=== PATIENT | male | born 1950 | race Two or more races ===

== ENCOUNTER 2024-06-26 03:03 | Observation (INO) | payer OTHER ==
[~2024-06-26] VITALS: Ht 170.2 cm; Wt 84.1 kg
--- NOTE | 2024-06-26 03:48 | ED.PDOC ---
History of Present Illness HPI Comments 74 year old male came to ER due to urinary issues. Patient has prostate enlargement, had a De Dios catheter inserted last Jun 05, to help with his urination. Yesterday he went to Urgent Care due to the presence of gross blood at his catheter. Patient was started on antibiotics and his catheter was changed. Few hours ago, noted that his catheter appeared to be clogged as there was no urine output noted. Patient denies any pain, denies any nausea or vomiting. Chief Complaint: Urinary Time Seen by MD: 03:48 Reviewed Notes: Nurses Notes, Medications, Allergies (No allergies to medications) Allergies: Coded Allergies: NO KNOWN ALLERGIES (Unverified , 05/31/24) Home Meds No Active Prescriptions or Reported Meds Information Source: Patient Mode of Arrival: Ambulatory Severity: Moderate Timing: Hours Duration: Since onset Prehospital treatment: None Past Medical History PAST MEDICAL HISTORY: PUD Past Medical History (Other): Benign Prostate Hypertrophy Surgical History (Other): Left knee surgery Family History Family History: Reviewed,noncontributory to illness Social History Smoker: Non-Smoker Alcohol: Denies ETOH Use Drugs: Denies Drug Use Lives In: Home Constitutional: denies: chills, diaphoresis, fatigue, fever, malaise, sweats, weakness, others EENTM: denies: blurred vision, double vision, ear bleeding, ear discharge, ear drainage, ear pain, ear ringing, eye pain, eye redness, hearing loss, mouth pain, mouth swelling, nasal discharge, nose bleeding, nose congestion, nose pain, photophobia, tearing, throat pain, throat swelling, voice changes, others Respiratory: denies: cough, hemoptysis, orthopnea, SOB at rest, shortness of breath, SOB with excertion, stridor, wheezing, others Cardiovascular: denies: chest pain, dizzy spells, diaphoresis, Dyspnea on exertion, edema, irregular heart beat, left arm pain, lightheadedness, palpitations, PND, syncope, others Gastrointestinal: denies: abdomen distended, abdominal pain, blood streaked bowels, constipated, diarrhea, dysphagia, difficulty swallowing, hematemesis, melena, nausea, poor appetite, poor fluid intake, rectal bleeding, rectal pain, vomiting, others Genitourinary: reports: hematuria; denies: burning, dysuria, flank pain, frequency, incontinence, penile discharge, penile sore, pain, testicle pain, testicle swelling, urgency, others Neurological: denies: dizziness, fainting, headache, left sided numbness, left sided weakness, numbness, paresthesia, pre-existing deficit, right sided numbness, right sided weakness, seizure, speech problems, tingling, tremors, weakness, others Musculoskeletal: denies: back pain, gout, joint pain, joint swelling, muscle pain, muscle stiffness, neck pain, others Integumetry: denies: bruises, change in color, change in hair/nails, dryness, laceration, lesions, lumps, rash, wounds, others Allergic/Immunocompromised: denies: Difficulty Healing, Frequent Infections, Hives, Itching, others Hematologic/Lymphatic: denies: anemia, blood clots, easy bleeding, easy bruising, swollen glands, others Endocrine: denies: excessive hunger, excessive sweating, excessive thirst, excessive urination, flushing, intolerance to cold, intolerance to heat, unexplained weight gain, unexplained weight loss, others Psychiatric: denies: anxiety, bipolar disorder, depression, hopeless, panic disorder, schizophrenia, sleepless, suicidal, others Physical Exam General Appearance: Moderate Distress HEENT: Normal ENT Inspection, Pharynx Normal, TMs Normal Neck: Full Range of Motion, Non-Tender, Normal, Normal Inspection Respiratory: Chest Non-Tender, Lungs Clear, No Accessory Muscle Use, No Respiratory Distress, Normal Breath Sounds Cardiovascular: No Edema, No JVD, No Murmur, No Gallop, Normal Peripheral Pulses, Regular Rate/Rhythm Breast Exam: Deferred Gastrointestinal: No Organomegaly, No Pulsatile Mass, Normal Bowel Sounds, Soft, Suprapubic, Tenderness Genitalia: Deferred Pelvic: Deferred Rectal: Deferred Extremities: No calf tenderness, Normal capillary refill, Normal inspection, Normal range of motion, Non-tender, No pedal edema Musculoskeletal : Apperance: Normal Neurologic: Alert, tester wafer substrate II-XII nml as Tested, No Motor Deficits, Normal Affect, Normal Mood, No Sensory Deficits Cerebellar Function: Normal Reflexes: Normal Skin: Dry, Normal Color, Warm Lymphatic: No Adenopathy Was a procedure done? Was a procedure done?: No Differential Dx Considerations may include: UTI, Kidney stones, Benign Prostate Hypertrophy X-Ray, Labs, Meds, VS Vital Signs Date Time Temp Pulse Resp B/P (MAP) Pulse Ox O2 Delivery O2 Flow Rate FiO2 06/26/24 04:13 102 17 96 Room Air* 0 21 06/26/24 04:08 97.2 108 20 113/70 (84) 96 97.2 06/26/24 03:23 97.2 125 16 128/83 (98) 98 Lab Test 06/26/24 04:55 Range/Units Urine Color Dark-brown Yellow Urine Clarity Ex.turbid Clear Urine pH 8.0 5.0-9.0 Urine Specific [place] 1.019 1.001-1.035 Urine Protein 3+ H Negative Urine Ketones Negative Negative Urine Blood 3+ H Negative /uL Urine Nitrite 2+ H Negative Urine Bilirubin Negative Negative Urine Urobilinogen Normal Negative mg/dL Urine Leukocyte Esterase 3+ Negative /uL Urine RBC 6129 0 - 3 /hpf Urine WBC 2394 0 - 3 /hpf Urine WBC Clumps Present None Seen /hpf Urine Squamous Epithelial Cells None seen <5 /hpf Urine Bacteria None seen None Seen /hpf Urine Mucus Few None Seen Urine Yeast (Budding) Many None Seen /hpf Urine Glucose Normal Normal mg/dL IV Hep-Lock is being established The CBC and BNP are pending The urine test is positive for significant UTI with significant amount of blood. The patient will undergo bladder irrigation We [facility] At this time, the patient will be placed on Rocephin IV piggyback for any infection Dr. Bell will do the final disposition on this patient Time of 1ST Reevaluation: 03:42 Reevaluation 1ST: Unchanged Patient Education/Counseling: Diagnosis, Treatment, Prognosis Family Education/Counseling: Diagnosis, Treatment, Prognosis Departure 1 Departure Time of Disposition: 05:40 Impression: Primary Impression: Sepsis secondary to UTI Disposition: ADMITTED INPATIENT Admit to: Med Surg Condition: Fair e-Prescriptions No Active Prescriptions or Reported Meds Critical Care Note Critical Care Time?: No Stability Stability form required: Yes Unstable for transfer: ED Physician Assesment (Clinical assesment) Heart Score Heart Score: Heart Score Response (Comments) Value History N/A 0 EKG N/A 0 Age N/A 0 Risk Factors N/A 0 Troponin N/A 0 Total 0 I personally scribed for SO RIOS MD ([email or web address]) on 06/26/24 at 03:48. Electronically submitted by Paulo Glez ([facility]). SO RIOS MD Jun 26, 2024 03:48
[2024-06-26 04:13] VITALS: PULSE 102; RESP 17; O2SAT 96
[2024-06-26 05:04] LABS: Urine Bacteria None Seen /hpf (None Seen)
[2024-06-26 05:09] LABS: Urine Blood 3+ /uL (Negative); Urine Budding Yeast MANY /hpf (None Seen); Urine Clarity Ex.Turbid (Clear); Urine Color Dark-Brown (Yellow); Urine Mucus FEW (None Seen); Urine Protein, UAD 3+ (Negative); Urine Specific Gravity 1.019 (1.001-1.035); Urine Urobilinogen Normal (Negative); Urine WBC 2394 /hpf (0 - 3); Urine WBC Clumps PRESENT /hpf (None Seen)
[2024-06-26 06:00] VITALS: TEMP 98.7
[2024-06-26] MEDS: SODIUM CHLORIDE 0.9% 1,000 ML IV ONE (06:10)
[2024-06-26] MEDS: cefTRIAXone 1GM/50ML D5W 50 ML IV ONE (06:18)
[2024-06-26] MEDS ORDERED: MORPHINE SULFATE INJ 2 MG/ml SYRG IV PRN (06:45)
[2024-06-26] MEDS ORDERED: NITROGLYCERIN 0.4 MG SL TAB SL PRN (06:45)
[2024-06-26 06:48] LABS: Basophils # (auto) 0 10 ^3/uL (0-0.2); Basophils % (auto) 0.3 % (0.0-2.0); Eosinophils # (auto) 0 10 ^3/uL (0-0.8); Eosinophils % (auto) 0.2 % (0.0-7.0); Hematocrit 33.4 % (41.0-53.0); Hemoglobin 11.3 g/dL (13.5-17.5); Lymphocytes # (auto) 0.7 10 ^3/uL (0.4-5.4); Lymphocytes % (auto) 5.9 % (10.0-50.0); Mean Corpuscular Hemoglobin 30.3 pg (28.0-32.0); Mean Corpuscular Hgb Conc. 33.8 g/dL (32.0-36.0); Mean Corpuscular Volume 89.6 fL (80.0-100.0); Monocytes # (auto) 0.7 10 ^3/uL (0-1.3); Monocytes % (auto) 6.1 % (0.0-12.0); Neutrophils # (auto) 10.1 10 ^3/uL (1.6-8.6); Neutrophils % (auto) 87.5 % (37.0-80.0); Platelet Count (auto) 354 10^3/uL (140-450); Red Blood Cells 3.73 10^6/uL (4.5-5.90); Red Cell Distribution Width 14.9 % (11.8-14.3); White Blood Cell 11.6 10^3/uL (4.4-10.8)
[2024-06-26 06:51] LABS: Chloride 109 mmol/L (98-107); Sodium 141 mmol/L (136-145)
[2024-06-26 06:52] LABS: Anion Gap 7 (5-15); Calcium 9.3 mg/dL (8.7-10.4); Carbon Dioxide 25 mmol/L (20-31)
[2024-06-26 06:57] LABS: BUN/Creatinine Ratio 14.8 (10.0-20.0); Blood Urea Nitrogen 18 mg/dL (9-23); Glucose 118 mg/dL (74-106)
--- NOTE | 2024-06-26 07:07 | DVHHP2 ---
Admitting Diagnosis: UTI complicated with dysuria, hematuria, enlarged prostate History of Present Illness HPI 74 y.o, male with enlarged prostate arrived to the ER c/o clogged urinary catheter. The De Dios catheter was inserted on June 05, due to difficulty urinating. Yesterday he had blood in urine and went to Urgent Care. IN UC the catheter was changed and patient was started on antibiotics. Unfortunately today his catheter became clogged again. His UA shows UTI with significant hematuria. Home Meds No Active Prescriptions or Reported Meds Past Medical History Renal/: Benign prostatic enlarg., Hematuria Patient Family History: Patient reports no known family medical history. Review of Systems Genitourinary: Dysuria, Hematuria, Retention H&P Exam Vital Signs Vital Signs Date Time Temp Pulse Resp B/P (MAP) Pulse Ox O2 Delivery O2 Flow Rate FiO2 06/26/24 04:13 102 17 96 Room Air* 0 21 06/26/24 04:08 97.2 113/70 (84) 97.2 General Appeara: Obese Head Exam: Normal inspection Neck Exam: Normal inspection Eye Exam: bilateral eye PERRL, bilateral eye EOMI Pulmonary/Respiratory: Lungs clear Cardiovascular/Chest: Tachycardia Abdominal Exam: Normal bowel sounds, Soft Neuro/Mental St: Alert, Oriented Labs/Xrays Labs Test 06/26/24 06:18 06/26/24 04:55 Range/Units White Blood Count 11.6 H 4.4-10.8 10^3/uL Red Blood Count 3.73 L 4.5-5.90 10^6/uL Hemoglobin 11.3 L 13.5-17.5 g/dL Hematocrit 33.4 L 41.0-53.0 % Mean Corpuscular Volume 89.6 80.0-100.0 fL Mean Corpuscular Hemoglobin 30.3 28.0-32.0 pg Mean Corpuscular Hemoglobin Concent 33.8 32.0-36.0 g/dL Red Cell Distribution Width 14.9 H 11.8-14.3 % Platelet Count 354 140-450 10^3/uL Mean Platelet Volume 8.2 6.9-10.8 fL Neutrophils (%) (Auto) 87.5 H 37.0-80.0 % Lymphocytes (%) (Auto) 5.9 L 10.0-50.0 % Monocytes (%) (Auto) 6.1 0.0-12.0 % Eosinophils (%) (Auto) 0.2 0.0-7.0 % Basophils (%) (Auto) 0.3 0.0-2.0 % Neutrophils # (Auto) 10.1 H 1.6-8.6 10 ^3/uL Lymphocytes # (Auto) 0.7 0.4-5.4 10 ^3/uL Monocytes # (Auto) 0.7 0-1.3 10 ^3/uL Eosinophils # (Auto) 0 0-0.8 10 ^3/uL Basophils # (Auto) 0 0-0.2 10 ^3/uL Nucleated Red Blood Cells 0.0 % Urine Color Dark-brown Yellow Urine Clarity Ex.turbid Clear Urine pH 8.0 5.0-9.0 Urine Specific [place] 1.019 1.001-1.035 Urine Protein 3+ H Negative Urine Ketones Negative Negative Urine Blood 3+ H Negative /uL Urine Nitrite 2+ H Negative Urine Bilirubin Negative Negative Urine Urobilinogen Normal Negative mg/dL Urine Leukocyte Esterase 3+ Negative /uL Urine RBC 6129 0 - 3 /hpf Urine WBC 2394 0 - 3 /hpf Urine WBC Clumps Present None Seen /hpf Urine Squamous Epithelial Cells None seen <5 /hpf Urine Bacteria None seen None Seen /hpf Urine Mucus Few None Seen Urine Yeast (Budding) Many None Seen /hpf Urine Glucose Normal Normal mg/dL Assessment/Plan Problem List: (1) UTI (urinary tract infection) (2) Hematuria (3) Dysuria Plan NPO,urology consult, IVF, Abx Plan discussed with: Patient MELVIN MUKHERJEE MD Jun 26, 2024 07:07
[2024-06-26 07:22] VITALS: PULSE 91; RESP 16; O2SAT 97
[2024-06-26] MEDS: SOD CHL 0.45% 1,000 ML IV ONE (07:30)
--- NOTE | 2024-06-26 09:31 | DVHINCON2 ---
Date of service: Jun 26, [address] Rivera Reason for Consultation hematuria History of Present Illness History Source: Patient, RN Notes, Old Records Exam Limitations: No limitations HPI 74 year old male came to ER due to urinary issues. Patient has prostate enlargement, had a Adam catheter inserted last Jun 05, to help with his urination. Yesterday he went to Urgent Care due to the presence of gross blood at his catheter. Patient was started on antibiotics and his catheter was changed. Few hours ago, noted that his catheter appeared to be clogged as there was no urine output noted. Patient denies any pain, denies any nausea or vomiting. Home Meds No Active Prescriptions or Reported Meds Past Medical History Patient Family History: Patient reports no known family medical history. Smoker: No Hx (Negative) Alocohol: None Drugs: None Domestic Violence: Neg Review of Systems Genitourinary: Hematuria, Pain H&P Exam Vital Signs Vital Signs Date Time Temp Pulse Resp B/P (MAP) Pulse Ox O2 Delivery O2 Flow Rate FiO2 06/26/24 07:22 91 16 97 Room Air* 0 21 06/26/24 06:00 98.7 114/73 (87) 98.7 General Appeara: Well developed, Well nourished, Normal Appearance Abdominal Exam: Normal bowel sounds, Soft, No tenderness, No hepatospenomegaly, No masses Neuro/Mental St: Alert, Oriented Appearance: Appropriate appearance, Appropriate insight Eye contact/ Speech: Cooperative, Good eye contact, Normal speech Skin Exam: Normal inspection, Normal color, Warm/dry Labs/Xrays Labs Test 06/26/24 06:18 06/26/24 04:55 Range/Units White Blood Count 11.6 H 4.4-10.8 10^3/uL Red Blood Count 3.73 L 4.5-5.90 10^6/uL Hemoglobin 11.3 L 13.5-17.5 g/dL Hematocrit 33.4 L 41.0-53.0 % Mean Corpuscular Volume 89.6 80.0-100.0 fL Mean Corpuscular Hemoglobin 30.3 28.0-32.0 pg Mean Corpuscular Hemoglobin Concent 33.8 32.0-36.0 g/dL Red Cell Distribution Width 14.9 H 11.8-14.3 % Platelet Count 354 140-450 10^3/uL Mean Platelet Volume 8.2 6.9-10.8 fL Neutrophils (%) (Auto) 87.5 H 37.0-80.0 % Lymphocytes (%) (Auto) 5.9 L 10.0-50.0 % Monocytes (%) (Auto) 6.1 0.0-12.0 % Eosinophils (%) (Auto) 0.2 0.0-7.0 % Basophils (%) (Auto) 0.3 0.0-2.0 % Neutrophils # (Auto) 10.1 H 1.6-8.6 10 ^3/uL Lymphocytes # (Auto) 0.7 0.4-5.4 10 ^3/uL Monocytes # (Auto) 0.7 0-1.3 10 ^3/uL Eosinophils # (Auto) 0 0-0.8 10 ^3/uL Basophils # (Auto) 0 0-0.2 10 ^3/uL Nucleated Red Blood Cells 0.0 % Sodium Level 141 136-145 mmol/L Potassium Level 4.0 3.5-5.1 mmol/L Chloride Level 109 H 98-107 mmol/L Carbon Dioxide Level 25 20-31 mmol/L Anion Gap 7 5-15 Blood Urea Nitrogen 18 9-23 mg/dL Creatinine 1.22 0.700-1.30 mg/dL Glomerular Filtration Rate Calc 62 >90 mL/min BUN/Creatinine Ratio 14.8 10.0-20.0 Serum Glucose 118 H 74-106 mg/dL Lactic Acid Level 1.1 0.4-2.0 mmol/L Calcium Level 9.3 8.7-10.4 mg/dL Urine Color Dark-brown Yellow Urine Clarity Ex.turbid Clear Urine pH 8.0 5.0-9.0 Urine Specific [place] 1.019 1.001-1.035 Urine Protein 3+ H Negative Urine Ketones Negative Negative Urine Blood 3+ H Negative /uL Urine Nitrite 2+ H Negative Urine Bilirubin Negative Negative Urine Urobilinogen Normal Negative mg/dL Urine Leukocyte Esterase 3+ Negative /uL Urine RBC 6129 0 - 3 /hpf Urine WBC 2394 0 - 3 /hpf Urine WBC Clumps Present None Seen /hpf Urine Squamous Epithelial Cells None seen <5 /hpf Urine Bacteria None seen None Seen /hpf Urine Mucus Few None Seen Urine Yeast (Budding) Many None Seen /hpf Urine Glucose Normal Normal mg/dL Assessment/Plan Problem List: (1) BPH (benign prostatic hyperplasia) (2) Hematuria (3) Dysuria Plan d/c adam encourage fluids pt instructed to come to office by 4 if unable to void outpt cysto pending auth Plan discussed with: Patient, Other BETH MARTIN NP Jun 26, 2024 09:31
[2024-06-26] MEDS ORDERED: CIPROFLOXACIN 400MG/200ML 200 ML IV SCH (10:00)
[2024-06-26 11:00] VITALS: BP 115/69; PULSE 86; RESP 18; O2SAT 98
[2024-06-26] MEDS: CIPROFLOXACIN HCL 500 MG TAB PO SCH (11:18)
--- NOTE | 2024-06-26 12:18 | DVH ---
Left lower extremity venous duplex Clinical History: LLE swelling after knee replacement Comparison: None Findings: Duplex Doppler evaluation of the deep venous system of the left lower extremity from the common femor al vein to the popliteal vein including color Doppler and spectral/pulsed waveform analysis was perfo rmed. The common femoral vein demonstrates appropriate compressibility and waveform variability. There is compressibility/patency of the great saphenous vein at the proximal thigh. The femoral vein demonstrates appropriate compressibility and waveform variability. The deep femoral vein demonstrates appropriate compressibility and waveform variability. The popliteal vein demonstrates appropriate compressibility and waveform variability. There is normal compressibility at the tibioperoneal trunk. Impression: No left femoropopliteal venous thrombosis. If clinical concern/symptoms persist or worsen, short-interval follow-up study is suggested.
[2024-06-26] MEDS: TAMSULOSIN HYDROCHLORIDE 0.4 MG CAP PO ONE (12:38)
--- NOTE | 2024-06-26 12:47 | DVHDS2 ---
Discharge Summary Date of Admission Jun 26, 2024 at 06:53 Date of Discharge: Jun 26, 2024 Labs/Diagnostic Data: Laboratory Results Test 06/26/24 06:18 06/26/24 04:55 White Blood Count 11.6 10^3/uL (4.4-10.8) Red Blood Count 3.73 10^6/uL (4.5-5.90) Hemoglobin 11.3 g/dL (13.5-17.5) Hematocrit 33.4 % (41.0-53.0) Mean Corpuscular Volume 89.6 fL (80.0-100.0) Mean Corpuscular Hemoglobin 30.3 pg (28.0-32.0) Mean Corpuscular Hemoglobin Concent 33.8 g/dL (32.0-36.0) Red Cell Distribution Width 14.9 % (11.8-14.3) Platelet Count 354 10^3/uL (140-450) Mean Platelet Volume 8.2 fL (6.9-10.8) Neutrophils (%) (Auto) 87.5 % (37.0-80.0) Lymphocytes (%) (Auto) 5.9 % (10.0-50.0) Monocytes (%) (Auto) 6.1 % (0.0-12.0) Eosinophils (%) (Auto) 0.2 % (0.0-7.0) Basophils (%) (Auto) 0.3 % (0.0-2.0) Neutrophils # (Auto) 10.1 10 ^3/uL (1.6-8.6) Lymphocytes # (Auto) 0.7 10 ^3/uL (0.4-5.4) Monocytes # (Auto) 0.7 10 ^3/uL (0-1.3) Eosinophils # (Auto) 0 10 ^3/uL (0-0.8) Basophils # (Auto) 0 10 ^3/uL (0-0.2) Nucleated Red Blood Cells 0.0 % Sodium Level 141 mmol/L (136-145) Potassium Level 4.0 mmol/L (3.5-5.1) Chloride Level 109 mmol/L (98-107) Carbon Dioxide Level 25 mmol/L (20-31) Anion Gap 7 (5-15) Blood Urea Nitrogen 18 mg/dL (9-23) Creatinine 1.22 mg/dL (0.700-1.30) Glomerular Filtration Rate Calc 62 mL/min (>90) BUN/Creatinine Ratio 14.8 (10.0-20.0) Serum Glucose 118 mg/dL (74-106) Lactic Acid Level 1.1 mmol/L (0.4-2.0) Calcium Level 9.3 mg/dL (8.7-10.4) Urine Color Dark-brown (Yellow) Urine Clarity Ex.turbid (Clear) Urine pH 8.0 (5.0-9.0) Urine Specific [place] 1.019 (1.001-1.035) Urine Protein 3+ (Negative) Urine Ketones Negative (Negative) Urine Blood 3+ /uL (Negative) Urine Nitrite 2+ (Negative) Urine Bilirubin Negative (Negative) Urine Urobilinogen Normal mg/dL (Negative) Urine Leukocyte Esterase 3+ /uL (Negative) Urine RBC 6129 /hpf (0 - 3) Urine WBC 2394 /hpf (0 - 3) Urine WBC Clumps Present /hpf (None Seen) Urine Squamous Epithelial Cells None seen /hpf (<5) Urine Bacteria None seen /hpf (None Seen) Urine Mucus Few (None Seen) Urine Yeast (Budding) Many /hpf (None Seen) Urine Glucose Normal mg/dL (Normal) Other Laboratory Tests 06/26/24 06:18 Brief Hx & Hospital Course: Patient is a 74-year-old male with past medical history of prostate cancer, recent left knee replacement, history of urinary retention who presents due to malfunctioning De Dios catheter. Patient was recently seen in the urgent care prior to admission for complaints of hematuria with clogged De Dios catheter. The De Dios was exchanged but continued to have clots. Patient presented to the ER and was seen by urology. The De Dios catheter was noted to be functional. Patient had the De Dios catheter placed 2 weeks prior after his knee replacement surgery and he was noted to have urinary retention. He states that he had not followed up with urology since that time. Per urology, the De Dios catheter was removed. Patient subsequently had difficulty urinating. De Dios was subsequently reinserted. Urology cleared the patient for discharge and recommended outpatient follow-up for cystoscopy. Patient was discharged on ciprofloxacin for UTI for 5 days. Patient was noted to have left lower extremity swelling and an ultrasound lower extremity central DVT which was negative. Patient was in agreement with the plan for discharge. Patient discharged in stable condition. [facility] case management help arrange follow up appointments. Consults/Reason for consult Urology-Urinary Retention Condition at Discharge: Good Final Diagnosis/Problems List Urinary Retention with Hematuria Secondary Diagnosis: History of Prostate Cancer Discharge Disposition: Home Discharge Statement: "Patient was advised to return to the ER or call 911 if any headaches, dizziness, shortness of breath, chest pain, abdominal pain, bleeding, fevers, or worsening of medical condition. Patient was counseled about treatment plan, medications, possible side effects, patientverbalized understanding. All questions were answered to the best of my ability. This discharge took greater then 30 minutes in planning, reviewing documentation, counseling the patient, and discussing with other team members." ASSESSMENT ASSESSMENT Assessment RANGEL MCCOY DO Jun 26, 2024 12:47
[2024-06-26] MEDS ORDERED: CIP500T GT (12:59)
[2024-06-26] MEDS ORDERED: MORPHINE SULFATE 4 MG/ML SYR/VIAL IV ONE (13:00)
[2024-06-26] MEDS ORDERED: CIP500T PO (14:09)
== END 2024-06-26 14:00 | disposition home or self-care (01) ==
LOC: ER 03:03 → OVERFLOW 06:53 → INTOOBSV 06:53 → SUATTDRO 08:24 → OVERFLOW 13:00
PROVIDERS: ADMIT Internal Medicine; ATTEND Student in an Organized Health Care Education/Training Program
DX: A41.9 Sepsis, unspecified organism (principal); N39.0 Urinary tract infection, site not specified; N40.1 Benign prostatic hyperplasia with lower urinary tract symptoms; R31.9 Hematuria, unspecified; R33.8 Other retention of urine; R30.0 Dysuria; R60.0 Localized edema; T83.091A Other mechanical complication of indwelling urethral catheter, initial encounter; Z87.891 Personal history of nicotine dependence; Z96.652 Presence of left artificial knee joint; Z87.11 Personal history of peptic ulcer disease; Z85.46 Personal history of malignant neoplasm of prostate; Y84.6 Urinary catheterization as the cause of abnormal reaction of the patient, or of later complication, without mention of misadventure at the time of the procedure
CPT/HCPCS: 36415; 80048; 81001; 83605; 85025; 87040; 93971; 96361; 96365; 99285; G0378; J0696

== ENCOUNTER 2024-07-06 20:56 | Emergency (ER) | payer OTHER ==
[~2024-07-06] VITALS: Ht 170.2 cm; Wt 86.2 kg
[~2024-07-06 20:56] MED LIST: CIP500T PO
[2024-07-06 21:33] LABS: Basophils # (auto) 0.1 10 ^3/uL (0-0.2); Basophils % (auto) 0.5 % (0.0-2.0); Eosinophils # (auto) 0.2 10 ^3/uL (0-0.8); Eosinophils % (auto) 1.3 % (0.0-7.0); Hemoglobin 12.3 g/dL (13.5-17.5); Lymphocytes # (auto) 1.3 10 ^3/uL (0.4-5.4); Lymphocytes % (auto) 11.2 % (10.0-50.0); Mean Corpuscular Hemoglobin 29.4 pg (28.0-32.0); Mean Corpuscular Hgb Conc. 33.4 g/dL (32.0-36.0); Mean Corpuscular Volume 88.1 fL (80.0-100.0); Monocytes # (auto) 0.9 10 ^3/uL (0-1.3); Monocytes % (auto) 8.1 % (0.0-12.0); Neutrophils % (auto) 78.9 % (37.0-80.0); Nucleated Red Blood Cells % 0.2 %; Platelet Count (auto) 371 10^3/uL (140-450); Red Cell Distribution Width 15.2 % (11.8-14.3); White Blood Cell 11.4 10^3/uL (4.4-10.8)
[2024-07-06 21:34] LABS: Urine Bacteria FEW /hpf (None Seen); Urine Blood 1+ /uL (Negative); Urine Budding Yeast FEW /hpf (None Seen); Urine Clarity Clear (Clear); Urine Color Light-Yellow (Yellow); Urine Mucus FEW (None Seen); Urine Protein, UAD TRACE (Negative); Urine Specific Gravity 1.012 (1.001-1.035); Urine Urobilinogen Normal (Negative); Urine WBC 74 /hpf (0 - 3); Urine pH 5.5 (5.0-9.0)
[2024-07-06 21:40] LABS: Chloride 109 mmol/L (98-107); Potassium 3.8 mmol/L (3.5-5.1); Sodium 141 mmol/L (136-145)
[2024-07-06 21:41] LABS: Anion Gap 8 (5-15); Calcium 9.4 mg/dL (8.7-10.4); Carbon Dioxide 24 mmol/L (20-31)
[2024-07-06 21:46] LABS: BUN/Creatinine Ratio 12.3 (10.0-20.0); Blood Urea Nitrogen 16 mg/dL (9-23); Glucose 121 mg/dL (74-106)
[2024-07-06] MEDS: KETOROLAC TROMETH 30 MG/ML 1ML VIAL IV ONE (22:01)
[2024-07-06] MEDS: ONDANSETRON HCL 4 MG/2 ML VIAL IV ONE (22:01)
[2024-07-06] MEDS: cefTRIAXone 1GM/50ML D5W 50 ML IV ONE (22:01)
[2024-07-06] MEDS: SODIUM CHLORIDE 0.9% 1,000 ML IV ONE (22:04)
[2024-07-07 07:41] VITALS: TEMP 98.4
[2024-07-07 08:47] VITALS: PULSE 70; RESP 14; O2SAT 94
[2024-07-07 09:39] VITALS: BP 119/0; PULSE 90; RESP 15; O2SAT 98
[2024-07-07] MEDS: HYDROcodone-ACET 5/325MG TAB PO ONE (10:03)
[2024-07-07] MEDS ORDERED: BACDST PO (11:23)
[2024-07-07] MEDS ORDERED: SULFAMETHOX W/TRIMETH(800/160MG) DS TAB PO ONE (11:30)
== END 2024-07-07 11:45 | disposition home or self-care (01) ==
LOC: ER 20:56
DX: N30.00 Acute cystitis without hematuria (principal); Z98.890 Other specified postprocedural states; Z79.899 Other long term (current) drug therapy; Z96.659 Presence of unspecified artificial knee joint
CPT/HCPCS: 36415; 80048; 81001; 85025; 96365; 96375; 99285; J0696; J1885; J2405